=== PATIENT | male | born 1970 | race Caucasian/White ===

== ENCOUNTER → 2016-09-19 | Outpatient (CLI) | payer BC ==
--- NOTE | 2016-09-19 19:14 | EST ---
DATE OF SERVICE: 09/19/2016 AGE: 46Y SEX: M HT: 72" WT: 180 lbs. Protocol Steven: Other: Stage: Dur. of Exercise: 10:39 *Heart Rate Blood Pressure *Rest: 91 Rest: 138/91 * *Max. Achieved: 154 Maximum BP: 195/93 85% PMHR: 150 100% PMHR: 176 *METS: 10.5 INDICATIONS: Chest pain. MEDICATIONS: See list. Exercise treadmill stress test for Max Shelby 09/19/2016. Indication the study: Chest pain. Stress data: Pretesting physical examination showed the heart rate of 97, pressure is 138/91 millimeters Hg. Baseline EKG showed sinus mechanism. The patient exercised on the treadmill according to Steven protocol for a total of 10 minutes and 39 seconds and achieved 10.5 METs. Max heart rate was 146, which is about 88% of maximum predicted heart rate. Maximum blood pressure was 195/93 mmHg. Clinically he did not have any symptoms of chest pain and the EKG did not show any significant ST or T-waves abnormalities consistent with ischemia. CONCLUSION: 1. Good exercise capacity. 2. Normal EKG. 3. ( ) response to exercise.
--- NOTE | 2016-09-22 09:17 | EST ---
DATE OF SERVICE: 09/19/2016 AGE: 46Y SEX: M HT: 72 WT: 180 lbs. Protocol Steven: X Other: Stage: IV Dur. of Exercise: *Heart Rate Blood Pressure *Rest: Rest: * *Max. Achieved: Maximum BP: 85% PMHR: 100% PMHR: *METS: ADDENDUM: CONCLUSION: 1. Good exercise capacity. 2. Normal EKG in response to exercise. 3. Overall normal stress test for this patient.
== END | disposition home or self-care (01) ==
LOC: RADNMMAIN 10:57
PROVIDERS: ATTEND Family Medicine
DX: R07.9 Chest pain, unspecified (principal)
CPT/HCPCS: 93017

== ENCOUNTER 2019-09-05 06:27 | Emergency (ER) | payer BC ==
[2019-09-05 06:36] VITALS: BP 119/83; PULSE 86; RESP 18; TEMP 97.5
[2019-09-05] MEDS ORDERED: HYDROcodone/APAP 7.5-325MG 1 EACH TAB PO ONE (06:52)
--- NOTE | 2019-09-05 07:16 | XR ---
Chest x-ray with bilateral RIBS HISTORY: Cough, rib pain Frontal view of the chest and 4 views of the left ribs and 4 views of the right ribs submitted on a t otal of 9 images And correlation to prior left RIBS dated 11/11/2014, chest x-ray 11/11/2014 There are overlying cardiac leads which which are detailed. There is no evident pneumothorax or pleur al effusion. Bone mineralization is maintained. No evident airspace disease. No evident displaced rib fracture. IMPRESSION: No acute abnormality. Bone scan could be performed for increased sensitivity if occult fr acture is suspected clinically. Rib series will be repeated at no additional charge to the patient sh ould it be requested.
--- NOTE | 2019-09-05 07:22 | ED ---
URI HPI - General Chief Complaint: Upper Respiratory Infection Stated Complaint: Rib Pain Time Seen by Provider: 09/05/19 06:38 Source: patient Mode of arrival: ambulatory Limitations: no limitations - History of Present Illness Initial Comments: 48yo male presenting today for chief complaint of left-sided rib pain x 12 hours. Patient states he has had a cough for the past month as well as others in his home. Patient denies hemoptysis. He states that he goes through coughing spells involve month ago he had such a hard spell he felt as though he broke a right rib. Patient states this was not confirmed on chest x-ray nor did he seek evaluation. Patient states last night as he was coughing he felt sudden onset of left rib pain he states it is tender to palpate that area as well as if he takes a deep breath. Patient denies any history of DVT provider embolism or leg swelling. Patient denies any fever or flu like symptoms. Has been on oral steroids. Denies any other complaints. ON arrival patient appears well there is no signs of respiratory distress. - Related Data Home Medications Medication Instructions Recorded Confirmed Budesonide-Formot 160-4.5 Mcg 2 puff INHALATION RT-DAILY 09/05/19 09/05/19 [Symbicort 160-4.5 Mcg Inhaler] Citalopram Hydrobromide 20 mg PO DAILY 09/05/19 09/05/19 [Citalopram HBr] Propranolol LA [Inderal LA] 60 mg PO DAILY 09/05/19 09/05/19 amLODIPine [Norvasc] 10 mg PO DAILY 09/05/19 09/05/19 traZODone HCL 50 mg PO HS PRN 09/05/19 09/05/19 Previous Rx's Medication Instructions Recorded Albuterol Inhaler [Ventolin Hfa 1 - 2 puff INHALATION RT-Q6H PRN 7 09/05/19 Inhaler] Days #1 inhaler Allergies Allergy/AdvReac Type Severity Reaction Status Date / Time No Known Allergies Allergy Verified 09/05/19 07:49 Review of Systems ROS Statement: Those systems with pertinent positive or pertinent negative responses have been documented in the HPI. ROS Other: All systems not noted in ROS Statement are negative. Past Medical History Past Medical History: Hypertension History of Any Multi-Drug Resistant Organisms: None Reported Past Surgical History: Tonsillectomy Additional Past Surgical History / Comment(s): mandible surgery Smoking Status: Current every day smoker Past Alcohol Use History: Daily Past Drug Use History: None Reported General Exam - General Exam Comments Initial Comments: General: The patient is awake and alert, in no distress, and does not appear acutely ill. Eye: +3 mm pupils are equal, round and reactive to light, extra-ocular movements are intact. No nystagmus. There is normal conjunctiva bilaterally. No signs of icterus. No photophobia Ears, nose, mouth and throat: There are moist mucous membranes and no oral lesions. Oropharynx was not erythematous there is no tonsillar enlargement exudates or lesions. Uvula midline. Tympanic membranes are not erythematous or is no effusions bulging or retraction. No tenderness to palpation of the mastoid. No anterior cervical lymphadenopathy. No tripoding, no drooling. Neck: The neck is supple, there is no tenderness or JVD. Cardiovascular: There is a regular rate and rhythm. No murmur, rub or gallop is appreciated. Respiratory: Lungs are clear to auscultation, respirations are non-labored, breath sounds are equal. No wheezes, stridor, rales, or rhonchi. No retractions or abdominal breathing. Dry cough Gastrointestinal: Soft, non-distended, non-tender abdomen without masses or organomegaly noted. There is no rebound or guarding present. Bowel sounds are unremarkable. Musculoskeletal: tendern to palpation around the level of left rib #6 mid clavicular line. Normal ROM, no tenderness. Strength 5/5. Sensation intact. Radial pulses equal bilaterally 2+. Neurological: A&O x 3. CN II-XII intact grossly, There are no obvious motor or sensory deficits. Coordination appears grossly intact. Speech appears normal, no muffling. Skin: Skin is warm and dry and no rashes or lesions are noted. No extremity edema Psychiatric: Cooperative Limitations: no limitations Course Vital Signs 09/05/19 09/05/19 06:30 08:13 Temperature 97.5 F L 97.5 F L Pulse Rate 86 86 Respiratory 18 18 Rate Blood Pressure 119/83 119/83 O2 Sat by Pulse 97 97 Oximetry Medical Decision Making - Medical Decision Making 48yo male presents today for chief complaint of rib pain after cough. HX of previous rib fractures of injury states feels similar. Patient CXR no obvious displaced fractures, no pneumothorax nor pneumonia. Patient has no SOB, chest pain, the pain is reproducible to palpation. + sick contacts. At this time feel patient is stable for discharge with outpatient follow-up, albuterol inhaler. Patient given pain medications in the ER as well as started pack, appropriate use was discussed. Patient case discussed with Dr. Cannon who is agreeable to care plan and discharge. Disposition Clinical Impression: Rib pain on left side, Cough Disposition: HOME SELF-CARE Condition: Good Instructions (If sedation given, give patient instructions): Muscle Strain (ED), Upper Respiratory Infection (ED) Additional Instructions: Please use medication as discussed. Please follow-up with family doctor in the next 2 days. Please return to emergency room if the symptoms increase or worsen or for any other concerns. Prescriptions: Albuterol Inhaler [Ventolin Hfa Inhaler] 1 - 2 puff INHALATION RT-Q6H PRN 7 Days #1 inhaler PRN Reason: Wheezing Is patient prescribed a controlled substance at d/c from ED?: No Referrals: Disha Jackson MD [Primary Care Provider] - 1-2 days Time of Disposition: 07:50
[2019-09-05] MEDS ORDERED: ACET/COD 300 MG/30 MG STARTER PACK 6 TAB BTL PO STA (07:54)
== END 2019-09-05 08:13 | disposition home or self-care (01) ==
LOC: EC 06:27
DX: R07.81 Pleurodynia (principal); R05 Cough; I10 Essential (primary) hypertension; F17.200 Nicotine dependence, unspecified, uncomplicated; Z79.51 Long term (current) use of inhaled steroids; Z79.899 Other long term (current) drug therapy
CPT/HCPCS: 71111; 93005; 99283

== ENCOUNTER → 2019-09-19 | Outpatient (CLI) | payer BC ==
--- NOTE | 2019-09-19 14:42 | NM ---
EXAMINATION TYPE: NM bone/joint limited DATE OF EXAM: 09/19/2019 COMPARISON: X-ray 09/05/2019 HISTORY: Pain TECHNIQUE: After the intravenous administration of 25.2 mCi Tc 99m MDP. Images acquired 3 hours pos t injection. Multiple views of the rib cage are submitted. FINDINGS: Within the posterior lateral left rib cage at the approximate left sixth rib findings are suspicious for intense abnormal uptake and fracture. Within the lateral margin of the right rib cage at the approximate level of the right ninth and fifth ribs there is intense abnormal uptake. IMPRESSION: 1. Findings are highly suspicious for bilateral rib fractures.
== END | disposition home or self-care (01) ==
LOC: RADNMMAIN 10:37
PROVIDERS: ATTEND Family Medicine
DX: S22.39XA Fracture of one rib, unspecified side, initial encounter for closed fracture (principal)
CPT/HCPCS: 78300; A9503

== ENCOUNTER 2022-10-21 09:08 | Emergency (ER) | payer BC ==
[2022-10-21] MEDS ORDERED: SODIUM CHLORIDE 0.9% 1,000 ML IV STA (09:32)
[2022-10-21] MEDS ORDERED: KETOROLAC 15 MG/ML 1 ML VIAL IVP STA (09:32)
[2022-10-21 09:43] VITALS: RESP 18
--- NOTE | 2022-10-21 10:04 | ED ---
Abdominal Pain HPI - General Chief Complaint: Abdominal Pain Stated Complaint: Abd Pain,Sent by Urgent Care Time Seen by Provider: 10/21/22 09:26 Source: patient, RN notes reviewed Mode of arrival: ambulatory Limitations: no limitations - History of Present Illness Initial Comments: This is a 52-year-old male who presents to the emergency department for abdominal pain. States that he was diagnosed with alcoholic induced liver disease 2 years ago. Pain is largely right sided. Shortly after this, he was experiencing right upper quadrant pain, jaundice, and dark urine. He was diagnosed with acute cholecystitis and transferred to [place] from [facility] for management by gastroenterology. He was told that it was too dangerous to remove his gallbladder, and there has not been a plan for surgical intervention since. States that over the last 2 days, he has had an increase in abdominal pain. He feels like his abdomen is swollen. Denies any nausea or vomiting. His symptoms are not as severe as they were when he had the chol ecystitis, as he is not experiencing jaundice or dark urine. He does still report chronic daily alcohol use.additionally, he has a history of COPD and states that he has had increasing coughing, difficulty breathing, and coughing over the last few days. Also reports left-sided lymphadenopathy. He has been on antibiotics with no improvement in symptoms. Denies any fevers, chills, sore throat, chest pain, palpitations, nausea, vomiting, diarrhea, back pain, or headaches. MD Complaint: abdominal pain Location: RUQ - Related Data Home Medications Medication Instructions Recorded Confirmed Budesonide-Formot 160-4.5 Mcg 2 puff INHALATION RT-DAILY PRN 09/05/19 10/21/22 [Symbicort 160-4.5 Mcg Inhaler] Propranolol LA [Inderal LA] 60 mg PO DAILY 09/05/19 10/21/22 amLODIPine [Norvasc] 10 mg PO DAILY 09/05/19 10/21/22 traZODone HCL 50 mg PO HS 09/05/19 10/21/22 Albuterol Inhaler [Ventolin Hfa 1 - 2 puff INHALATION RT-QID PRN 10/21/22 10/21/22 Inhaler] Amoxicillin 500 mg PO BID 10/21/22 10/21/22 Previous Rx's Medication Instructions Recorded Ketorolac [Toradol] 10 mg PO Q6HR PRN #12 tab 10/21/22 Allergies Allergy/AdvReac Type Severity Reaction Status Date / Time No Known Allergies Allergy Verified 10/21/22 11:18 Review of Systems ROS Statement: Those systems with pertinent positive or pertinent negative responses have been documented in the HPI. ROS Other: All systems not noted in ROS Statement are negative. Past Medical History Past Medical History: Hypertension Additional Past Medical History / Comment(s): Hepatitis History of Any Multi-Drug Resistant Organisms: None Reported Past Surgical History: Tonsillectomy Additional Past Surgical History / Comment(s): mandible surgery Past Psychological History: No Psychological Hx Reported Smoking Status: Current every day smoker Past Alcohol Use History: Daily, Heavy Past Drug Use History: None Reported General Exam Limitations: no limitations General appearance: alert, in no apparent distress Head exam: Present: atraumatic, normocephalic, normal inspection Eye exam: Absent: scleral icterus Respiratory exam: Present: wheezes, decreased breath sounds, prolonged expiratory Cardiovascular Exam: Present: regular rate, normal rhythm, normal heart sounds. Absent: systolic murmur, diastolic murmur, rubs, gallop, clicks GI/Abdominal exam: Present: soft, tenderness (RUQ and RLQ), normal bowel sounds. Absent: distended Neurological exam: Present: alert, oriented X3, CN II-XII intact Psychiatric exam: Present: normal affect, normal mood Skin exam: Present: warm, dry, intact, normal color. Absent: rash Course Vital Signs 10/21/22 10/21/22 10/21/22 09:19 09:38 10:30 Temperature 98.1 F Pulse Rate 91 88 86 Respiratory 20 18 18 Rate Blood Pressure 147/77 133/90 O2 Sat by Pulse 96 96 94 L Oximetry 10/21/22 10/21/22 12:02 12:37 Temperature 97 F L Pulse Rate 80 76 Respiratory 18 18 Rate Blood Pressure 122/97 132/94 O2 Sat by Pulse 94 L 94 L Oximetry Medical Decision Making - Medical Decision Making This is a 52-year-old male who presents to the emergency department for abdominal pain. Was pt. sent in by a medical professional or institution? @ -No Did you speak to anyone other than the patient for history? @ -No Did you review nursing and triage notes? @ -Yes, and I agree, it is accurate with regards to the patient's symptoms. Were old charts reviewed? @ -No Differential Diagnosis? @ -Differential Abdominal Pain Men: Appendicitis, cholecystitis, diverticulosis, ischemic bowel, pancreatitis, hep atitis, UTI, gastroenteritis, AAA, incarcerated hernia, bowel obstruction, constipation, inflammatory bowel, hepatitis, peptic ulcer disease, splenic infarction, perforated viscus, testicular torsion, this is not meant to be an all-inclusive list X-ray interpreted by me (1pt min.)? @ -Chest x-ray obtained, my interpretation identifies no localized consolidatio ns or infiltrates. What testing was considered but not performed? (CT, X-rays, U/S, labs)? Why? @ -None What meds were considered but not given? Why? @ -None Did you discuss the management of the patient with other professionals? @ -No Did you reconcile home meds? @ -No Was smoking cessation discussed for >3mins.? @ -I discussed smoking cessation for greater than 3 minutes. The risk of smoking were discussed with the patient including but not limited to risks of cancer, stroke, coronary artery disease and COPD. Also discussed with patient were multiple methods of quitting smoking. Lastly we discussed the financial cost of smoking. Was critical care preformed (if so, how long)? @ -No Were there social determinants of health that impacted care today? How? (Homelessness, low income, unemployed, alcoholism, drug addiction, transportation, low edu. Level, literacy, decrease access to med. care, [facility], rehab)? @ -Alcoholism Was there de-escalation of care discussed even if they declined? (Discuss DNR or withdrawal of care, Hospice)? @ -No What co-morbidities impacted this encounter? (DM, HTN, Smoking, COPD, CAD, Cancer, CVA, Hep., AIDS, mental health diagnosis, sleep apnea, morbid obesity)? @ -HTN, liver disease, alcoholism Was patient admitted / discharged? @ -Discharged. Lab work obtained revealing notable elevation in LFTs, consistent with the patient's known history. Ultrasound of the abdomen, with particular attention paid to the liver and gallbladder was obtained. This revealed no acute findings to account for the patient's symptoms. He did have minor improvement in his pain with the Toradol. Chest x-ray revealed no acute findings with relation to the coughing and shortness of breath. He tested negative for Covid, influenza, and RSV. Prescription for 3 day course of Toradol provided to help with additional pain relief. He is advised to avoid other [id number] anti-inflammatories such as ibuprofen when taking this. Case management called Dr. Tripp's office to get the patient an initial appointment in order to become established for ongoing care. His insurance requires an official referral from his primary care provider. A follow-up appointment with his primary care provider was made for 10/24. He is instructed to get an official referral from his primary care provider at that time in order to become established with Dr. Tripp, gastroenterology, for ongoing management of the liver failure. He is otherwise advised to discontinue alcohol use due to the harmful effects that it is having of his liver and overall health. Undiagnosed new problem with uncertain prognosis? @ -None Drug Therapy requiring intensive monitoring for toxicity (Heparin, Nitro, Insulin, Cardizem)? @ -None Were any procedures done? @ -None Diagnosis/symptom? @ -Abdominal pain Acute, or Chronic, or Acute on Chronic? @ -Acute Uncomplicated (without systemic symptoms) or Complicated (systemic symptoms)? @ -Uncomplicated Side effects of treatment? @ -None Exacerbation, Progression, or Severe Exacerbation] @ -Not applicable Poses a threat to life or bodily function? @ -No Diagnosis/symptom? @ -Fatty infiltration of the liver, liver disease Acute, or Chronic, or Acute on Chronic? @ -Chronic Uncomplicated (without systemic symptoms) or Complicated (systemic symptoms)? @ -Uncomplicated Side effects of treatment? @ -None Exacerbation, Progression, or Severe Exacerbation] @ -Unclear, no prior values in our system for comparison Poses a threat to life or bodily function? @ -Yes Return precautions reviewed in depth, the patient is instructed to return to the emergency department with any new, worsening, or concerning symptoms. Patient verbalized understanding. This case was discussed in detail with the attending ED physician, Dr. Dawkins. Presentation, findings, and treatment plan discussed in detail as well. - Lab Data Result diagrams: 10/21/22 09:51 10/21/22 09:51 Lab Results 10/21/22 10/21/22 10/21/22 Range/Units 09:51 09:51 09:51 WBC 8.7 (3.8-10.6) k/uL RBC 4.83 (4.30-5.90) m/uL Hgb 15.8 (13.0-17.5) gm/dL Hct 44.8 (39.0-53.0) % MCV 92.8 (80.0-100.0) fL MCH 32.8 (25.0-35.0) pg MCHC 35.3 (31.0-37.0) g/dL RDW 12.4 (11.5-15.5) % Plt Count 205 (150-450) k/uL MPV 7.8 Neutrophils % 71 % Lymphocytes % 18 % Monocytes % 6 % Eosinophils % 3 % Basophils % 1 % Neutrophils # 6.1 (1.3-7.7) k/uL Lymphocytes # 1.6 (1.0-4.8) k/uL Monocytes # 0.5 (0-1.0) k/uL Eosinophils # 0.3 (0-0.7) k/uL Basophils # 0.1 (0-0.2) k/uL PT 10.1 (9.0-12.0) sec INR 0.9 (<1.2) APTT 24.5 (22.0-30.0) sec Sodium 136 L (137-145) mmol/L Potassium 4.1 (3.5-5.1) mmol/L Chloride 104 (98-107) mmol/L Carbon Dioxide 21 L (22-30) mmol/L Anion Gap 11 mmol/L BUN 12 (9-20) mg/dL Creatinine 0.62 L (0.66-1.25) mg/dL Est GFR (CKD-EPI)AfAm >90 (>60 ml/min/1.73 sqM) Est GFR (CKD-EPI)NonAf >90 (>60 ml/min/1.73 sqM) Glucose 96 (74-99) mg/dL Plasma Lactic Acid Bertrand (0.7-2.0) mmol/L Calcium 9.4 (8.4-10.2) mg/dL Total Bilirubin 2.5 H (0.2-1.3) mg/dL AST 190 H (17-59) U/L ALT 126 H (4-49) U/L Alkaline Phosphatase 111 (38-126) U/L Total Protein 7.9 (6.3-8.2) g/dL Albumin 4.9 (3.5-5.0) g/dL Amylase 67 (30-110) U/L Lipase 153 (23-300) U/L Urine Color Urine Appearance (Clear) Urine pH (5.0-8.0) Ur Specific [place] (1.001-1.035) Urine Protein (Negative) Urine Glucose (UA) (Negative) Urine Ketones (Negative) Urine Blood (Negative) Urine Nitrite (Negative) Urine Bilirubin (Negative) Urine Urobilinogen (<2.0) mg/dL Ur Leukocyte Esterase (Negative) Urine RBC (0-5) /hpf Urine WBC (0-5) /hpf Urine Mucus (None) /hpf Serum Alcohol <10 mg/dL Heterophile Antibody (Negative) Influenza Type A (PCR) (Not Detectd) Influenza Type B (PCR) (Not Detectd) RSV (PCR) (Not Detectd) SARS-CoV-2 (PCR) (Not Detectd) 10/21/22 10/21/22 10/21/22 Range/Units 09:51 09:51 10:01 WBC (3.8-10.6) k/uL RBC (4.30-5.90) m/uL Hgb (13.0-17.5) gm/dL Hct (39.0-53.0) % MCV (80.0-100.0) fL MCH (25.0-35.0) pg MCHC (31.0-37.0) g/dL RDW (11.5-15.5) % Plt Count (150-450) k/uL MPV Neutrophils % % Lymphocytes % % Monocytes % % Eosinophils % % Basophils % % Neutrophils # (1.3-7.7) k/uL Lymphocytes # (1.0-4.8) k/uL Monocytes # (0-1.0) k/uL Eosinophils # (0-0.7) k/uL Basophils # (0-0.2) k/uL PT (9.0-12.0) sec INR (<1.2) APTT (22.0-30.0) sec Sodium (137-145) mmol/L Potassium (3.5-5.1) mmol/L Chloride (98-107) mmol/L Carbon Dioxide (22-30) mmol/L Anion Gap mmol/L BUN (9-20) mg/dL Creatinine (0.66-1.25) mg/dL Est GFR (CKD-EPI)AfAm (>60 ml/min/1.73 sqM) Est GFR (CKD-EPI)NonAf (>60 ml/min/1.73 sqM) Glucose (74-99) mg/dL Plasma Lactic Acid Bertrand 0.9 (0.7-2.0) mmol/L Calcium (8.4-10.2) mg/dL Total Bilirubin (0.2-1.3) mg/dL AST (17-59) U/L ALT (4-49) U/L Alkaline Phosphatase (38-126) U/L Total Protein (6.3-8.2) g/dL Albumin (3.5-5.0) g/dL Amylase (30-110) U/L Lipase (23-300) U/L Urine Color Light Yellow Urine Appearance Clear (Clear) Urine pH 5.5 (5.0-8.0) Ur Specific [place] 1.008 (1.001-1.035) Urine Protein Negative (Negative) Urine Glucose (UA) Negative (Negative) Urine Ketones 1+ H (Negative) Urine Blood Trace H (Negative) Urine Nitrite Negative (Negative) Urine Bilirubin Negative (Negative) Urine Urobilinogen <2.0 (<2.0) mg/dL Ur Leukocyte Esterase Negative (Negative) Urine RBC <1 (0-5) /hpf Urine WBC <1 (0-5) /hpf Urine Mucus Rare H (None) /hpf Serum Alcohol mg/dL Heterophile Antibody Negative (Negative) Influenza Type A (PCR) (Not Detectd) Influenza Type B (PCR) (Not Detectd) RSV (PCR) (Not Detectd) SARS-CoV-2 (PCR) (Not Detectd) 10/21/22 Range/Units 10:01 WBC (3.8-10.6) k/uL RBC (4.30-5.90) m/uL Hgb (13.0-17.5) gm/dL Hct (39.0-53.0) % MCV (80.0-100.0) fL MCH (25.0-35.0) pg MCHC (31.0-37.0) g/dL RDW (11.5-15.5) % Plt Count (150-450) k/uL MPV Neutrophils % % Lymphocytes % % Monocytes % % Eosinophils % % Basophils % % Neutrophils # (1.3-7.7) k/uL Lymphocytes # (1.0-4.8) k/uL Monocytes # (0-1.0) k/uL Eosinophils # (0-0.7) k/uL Basophils # (0-0.2) k/uL PT (9.0-12.0) sec INR (<1.2) APTT (22.0-30.0) sec Sodium (137-145) mmol/L Potassium (3.5-5.1) mmol/L Chloride (98-107) mmol/L Carbon Dioxide (22-30) mmol/L Anion Gap mmol/L BUN (9-20) mg/dL Creatinine (0.66-1.25) mg/dL Est GFR (CKD-EPI)AfAm (>60 ml/min/1.73 sqM) Est GFR (CKD-EPI)NonAf (>60 ml/min/1.73 sqM) Glucose (74-99) mg/dL Plasma Lactic Acid Bertrand (0.7-2.0) mmol/L Calcium (8.4-10.2) mg/dL Total Bilirubin (0.2-1.3) mg/dL AST (17-59) U/L ALT (4-49) U/L Alkaline Phosphatase (38-126) U/L Total Protein (6.3-8.2) g/dL Albumin (3.5-5.0) g/dL Amylase (30-110) U/L Lipase (23-300) U/L Urine Color Urine Appearance (Clear) Urine pH (5.0-8.0) Ur Specific [place] (1.001-1.035) Urine Protein (Negative) Urine Glucose (UA) (Negative) Urine Ketones (Negative) Urine Blood (Negative) Urine Nitrite (Negative) Urine Bilirubin (Negative) Urine Urobilinogen (<2.0) mg/dL Ur Leukocyte Esterase (Negative) Urine RBC (0-5) /hpf Urine WBC (0-5) /hpf Urine Mucus (None) /hpf Serum Alcohol mg/dL Heterophile Antibody (Negative) Influenza Type A (PCR) Not Detected (Not Detectd) Influenza Type B (PCR) Not Detected (Not Detectd) RSV (PCR) Not Detected (Not Detectd) SARS-CoV-2 (PCR) Not Detected (Not Detectd) - Radiology Data Radiology results: report reviewed, image reviewed Disposition Clinical Impression: Abdominal pain, Fatty infiltration of liver Disposition: HOME SELF-CARE Instructions (If sedation given, give patient instructions): Cirrhosis (ED), Abdominal Pain (ED) Additional Instructions: Return to the emergency department with any new, worsening, or concerning symptoms. Take the Toradol up to every 6 hours as needed for pain relief. Follow up with your PCP on Monday as scheduled to get an official referral to Dr. Tripp, gastroenterology, for management of the liver disease. Prescriptions: Ketorolac [Toradol] 10 mg PO Q6HR PRN #12 tab PRN Reason: Pain Is patient prescribed a controlled substance at d/c from ED?: No Referrals: Disha Jackson MD [Primary Care Provider] - 10/24/22 11:15 am Denae Tripp MD [STAFF PHYSICIAN] - 1-2 days (Will need referral from Dr Jackson office to be sent to this office prior to appointment due to insurance. )
[2022-10-21 10:11] LABS: Basophils # (A) 0.1 k/uL (0-0.2); Basophils % (A) 1 %; Eosinophils # (A) 0.3 k/uL (0-0.7); Eosinophils % (A) 3 %; HCT 44.8 % (39.0-53.0); HGB 15.8 gm/dL (13.0-17.5); Lymphocytes # (A) 1.6 k/uL (1.0-4.8); Lymphocytes % (A) 18 %; MCH 32.8 pg (25.0-35.0); MCHC 35.3 g/dL (31.0-37.0); MCV 92.8 fL (80.0-100.0); Mean Platelet Volume 7.8; Monocytes # (A) 0.5 k/uL (0-1.0); Monocytes % (A) 6 %; Neutrophils # (A) 6.1 k/uL (1.3-7.7); Neutrophils % (A) 71 %; Platelet Count 205 k/uL (150-450); RBC 4.83 m/uL (4.30-5.90); RDW 12.4 % (11.5-15.5); WBC 8.7 k/uL (3.8-10.6)
[2022-10-21 10:14] LABS: Appearance,Urine Clear (Clear); Bilirubin,Urine Negative (Negative); Blood,Urine Trace (Negative); Color,Urine Light Yellow; Glucose,Urine (UA) Negative (Negative); Ketones,Urine 1+ (Negative); Leukocyte Esterase,Urine Negative (Negative); Mucus,Urine Rare /hpf; Nitrite,Urine Negative (Negative); PH, Urine 5.5 (5.0-8.0); Protein,Urine Negative (Negative); RBC,Urine <1 /hpf (0-5); Specific Gravity,Urine 1.008 (1.001-1.035); Urobilinogen,Urine <2.0 mg/dL (<2.0); WBC,Urine <1 /hpf (0-5)
[2022-10-21 10:27] LABS: INR 0.9 (<1.2); Partial Thromboplastin Time 24.5 sec (22.0-30.0); Prothrombin Time 10.1 sec (9.0-12.0)
--- NOTE | 2022-10-21 10:27 | XR ---
EXAMINATION TYPE: XR chest 2V DATE OF EXAM: 10/21/2022 COMPARISON: 09/05/2019 TECHNIQUE: PA and lateral views submitted. HISTORY: Shortness of breath FINDINGS: The lungs are clear and there is no pneumothorax, pleural effusion, or focal pneumonia. Heart size normal and no overt failure. Osseous structures intact. Hyperinflation. IMPRESSION: 1. No acute process. Correlate for COPD.
[2022-10-21 10:34] LABS: ALT 126 U/L (4-49); AST 190 U/L (17-59); African American GFR (CKD) >90 (>60 ml/min/1.73 sqM); Albumin 4.9 g/dL (3.5-5.0); Alcohol <10 mg/dL; Alkaline Phosphatase 111 U/L (38-126); Amylase 67 U/L (30-110); Anion Gap 11 mmol/L; Blood Urea Nitrogen 12 mg/dL (9-20); Calcium 9.4 mg/dL (8.4-10.2); Carbon Dioxide 21 mmol/L (22-30); Chloride 104 mmol/L (98-107); Glucose 96 mg/dL (74-99); Lipase 153 U/L (23-300); Non-African American GFR(CKD) >90 (>60 ml/min/1.73 sqM); Potassium 4.1 mmol/L (3.5-5.1); Sodium 136 mmol/L (137-145); Total Bilirubin 2.5 mg/dL (0.2-1.3); Total Protein 7.9 g/dL (6.3-8.2)
--- NOTE | 2022-10-21 11:38 | US ---
EXAMINATION TYPE: US abdomen limited DATE OF EXAM: 10/21/2022 COMPARISON: NONE CLINICAL HISTORY: Abdominal pain in liver failure. RUQ pain TECHNIQUE: Multiple sonographic images of the right upper quadrant are obtained. FINDINGS: EXAM MEASUREMENTS: Liver Length: 21.0 cm Gallbladder Wall: 0.3 cm CBD: 0.5 cm Right Kidney: 11.8 x 4.6 x 5.5 cm Pancreas: Obscured by bowel gas Liver: The liver is enlarged and diffusely increased in echogenicity compatible fatty liver infiltrat ion. There is no intra or extra hepatic biliary ductal dilation. Gallbladder: no evidence of stones Evidence for sonographic Bee's sign: no CBD: wnl Right Kidney: no evidence of hydronephrosis IMPRESSION: 1. No evidence of cholelithiasis or cholecystitis. 2. No evidence of biliary ductal dilation. 3. Hepatomegaly with diffuse hepatic steatosis. 4. No evidence of right-sided hydronephrosis.
[2022-10-21] MEDS ORDERED: MORPHINE SULFATE 2 MG/ML SYRINGE IVP STA (12:06)
[2022-10-21] MEDS ORDERED: traMADol 50 MG STARTER PACK 3 TAB BTL PO STA (12:21)
[2022-10-21 12:39] VITALS: BP 132/94; PULSE 76; TEMP 97
== END 2022-10-21 12:39 | disposition home or self-care (01) ==
LOC: EC 09:08
DX: K76.0 Fatty (change of) liver, not elsewhere classified (principal); I10 Essential (primary) hypertension; J44.9 Chronic obstructive pulmonary disease, unspecified; F17.200 Nicotine dependence, unspecified, uncomplicated; Z20.822 Contact with and (suspected) exposure to COVID-19; Z79.51 Long term (current) use of inhaled steroids; Z79.899 Other long term (current) drug therapy
CPT/HCPCS: 36415; 80053; 82150; 83605; 83690; 85025; 85610; 85730; 86308; 81001; 80320; 87636; 71046; 76705; 99285; 96374; 96361; J1885

== ENCOUNTER → 2022-12-21 | Outpatient (CLI) | payer BC ==
--- NOTE | 2022-12-23 11:48 | MR ---
EXAMINATION TYPE: MR liver wo/w con DATE OF EXAM: 12/21/2022 3:38 PM INDICATION: Patient age:Male; 52 years old; Reason for study: R74.01 ELEVATION OF LEVELS OF LIVER TRANSAMINASE L; . Elevated liver enzymes level COMPARISON: abdomen 10/21/2022 ultrasound. TECHNIQUE: Multiplanar multi-sequence imaging was performed without contrast. Post contrast imaging was performed. Post IV contrast subtraction images were also submitted for review. IV Contrast: 7 cc Gadavist FINDINGS: LOWER CHEST: No gross irregularity. ABDOMEN Liver: The liver is enlarged for size measuring up to 18.3 cm in caudocranial dimension at the midcla vicular line. There is signal dropout on chemical shift out of phase imaging. A high T2 signal segmen t 7 observation with arterial phase enhancement measuring 5 mm which persists on delayed imaging. Gallbladder and Bile ducts: The gallbladder is within normal limits. No ductal dilation. Pancreas: No ductal dilation or evidence for mass. Spleen: Unremarkable. Adrenal glands: Unremarkable. Kidneys: Unremarkable. Stomach and Bowel: Unremarkable as visualized. Peritoneum: No evidence of pneumoperitoneum or free fluid. Vasculature: Unremarkable. No aortic aneurysm. Musculoskeletal: The osseous structures appear intact. Lymph Nodes: No gross evidence for lymphadenopathy. Abdominal wall: Fat-containing umbilical. IMPRESSION: 1. No observation that meet HCC criteria. 2. Hepatomegaly with hepatic steatosis. 3. Suspected flash filling segment 7, 5 mm hemangioma.
== END | disposition home or self-care (01) ==
LOC: RADMRIMAIN 14:13
PROVIDERS: ATTEND Nurse Practitioner Family
DX: K76.0 Fatty (change of) liver, not elsewhere classified (principal); R16.0 Hepatomegaly, not elsewhere classified; R74.01 Elevation of levels of liver transaminase levels
CPT/HCPCS: 74183; A9585

== ENCOUNTER 2023-03-28 08:52 | Emergency (ER) | payer BC ==
--- NOTE | 2023-03-28 09:10 | ED ---
Chest Pain HPI - General Chief Complaint: Chest Pain Stated Complaint: chest pain, abd pain Time Seen by Provider: 03/28/23 08:53 Source: patient, EMS, RN notes reviewed Mode of arrival: EMS Limitations: no limitations - History of Present Illness Initial Comments: This is a 52-year-old male who presents to the emergency department for chest pain and abdominal pain. 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 This prompted him to call EMS. He was given Zofran and a nitroglycerin tablet, which essentially resolved his symptoms. Denies any history of chest pain like this in the past. He does have problems with intermittent abdominal pain due to his liver disease, but denies any known cardiac issues. As a separate issue, he does note that he had a mole removed from his right forearm 2 days ago, and has noticed increasing drainage and redness, and is concerned about an infection. Denies any fevers, chills, sore throat, cough, dyspnea, diarrhea, back pain, or headaches. MD Complaint: chest pain - Related Data Home Medications Medication Instructions Recorded Confirmed Propranolol LA [Inderal LA] 60 mg PO DAILY 09/05/19 03/28/23 amLODIPine [Norvasc] 10 mg PO DAILY 09/05/19 03/28/23 Albuterol Inhaler [Ventolin Hfa 1 - 2 puff INHALATION RT-QID PRN 10/21/22 03/28/23 Inhaler] Previous Rx's Medication Instructions Recorded Cephalexin [Keflex] 500 mg PO Q6HR 5 Days #20 cap 03/28/23 Allergies Allergy/AdvReac Type Severity Reaction Status Date / Time No Known Allergies Allergy Verified 03/28/23 11:26 Review of Systems ROS Statement: Those systems with pertinent positive or pertinent negative responses have been documented in the HPI. ROS Other: All systems not noted in ROS Statement are negative. Past Medical History Past Medical History: Hypertension Additional Past Medical History / Comment(s): Hepatitis History of Any Multi-Drug Resistant Organisms: None Reported Past Surgical History: Tonsillectomy Additional Past Surgical History / Comment(s): mandible surgery Past Psychological History: No Psychological Hx Reported Smoking Status: Current every day smoker Past Alcohol Use History: Daily, Heavy Past Drug Use History: None Reported General Exam Limitations: no limitations General appearance: alert, in no apparent distress Head exam: Present: atraumatic, normocephalic, normal inspection Respiratory exam: Present: normal lung sounds bilaterally. Absent: respiratory distress, wheezes, rales, rhonchi, stridor Cardiovascular Exam: Present: regular rate, normal rhythm, normal heart sounds. Absent: systolic murmur, diastolic murmur, rubs, gallop, clicks GI/Abdominal exam: Present: soft, normal bowel sounds. Absent: distended, tenderness, guarding, rebound, rigid Neurological exam: Present: alert, oriented X3, CN II-XII intact Psychiatric exam: Present: normal affect, normal mood Skin exam: Present: warm, dry, intact, normal color. Absent: rash Course Vital Signs 03/28/23 03/28/23 03/28/23 08:59 09:00 10:00 Temperature 98.2 F Pulse Rate 92 92 89 Respiratory 20 18 18 Rate Blood Pressure 149/104 149/104 157/90 O2 Sat by Pulse 95 96 95 Oximetry 03/28/23 03/28/23 03/28/23 11:00 12:00 13:00 Temperature 98.4 F Pulse Rate 82 79 80 Respiratory 18 18 18 Rate Blood Pressure 123/95 143/93 142/95 O2 Sat by Pulse 95 96 95 Oximetry Chest Pain MDM - MDM This is a 52-year-old male who presents to the emergency department for chest pain. Was pt. sent in by a medical professional or institution? @ -No Did you speak to anyone other than the patient for history? @ -No Did you review nursing and triage notes? @ -Yes, and I agree, it is accurate with regards to the patient's symptoms. Were old charts reviewed? @ -No Differential Diagnosis? @ -Differential Chest Pain: Stable Angina, Unstable Angina, STEMI, NSTEMI Aortic Dissection, Pneumothorax, Musculoskeletal, Esophageal Spasm GERD, Cholecystitis, Pancreatitis, Zoster, this is not meant to be an all-inclusive list. EKG interpreted by me (3pts min.)? @ -EKG interpreted by me demonstrating the following: Sinus rhythm. Ventricular rate 83 beats per minute, AR interval 128 ms, QRS duration 95 ms, QTC 405 ms. X-rays interpreted by me (1pt min.)? @ -Chest x-ray obtained, my interpretation identifies no localized consolidations or infiltrates. CT interpreted by me (1pt min.)? @ -Not obtained U/S interpreted by me (1pt. min.)? @ -Not obtained What testing was considered but not performed? (CT, X-rays, U/S, labs)? Why? @ -None What meds were considered but not given? Why? @ -None Did you discuss the management of the patient with other professionals? @ -No Did you reconcile home meds? @ -No Was smoking cessation discussed for >3mins.? @ -I discussed smoking cessation for greater than 3 minutes. The risk of smoking were discussed with the patient including but not limited to risks of cancer, stroke, coronary artery disease and COPD. Also discussed with patient were multiple methods of quitting smoking. Lastly we discussed the financial cost of smoking. Was critical care preformed (if so, how long)? @ -No Were there social determinants of health that impacted care today? How? (Homelessness, low income, unemployed, alcoholism, drug addiction, transportati on, low edu. Level, literacy, decrease access to med. care, long-term, rehab)? @ -No Was there de-escalation of care discussed even if they declined? (Discuss DNR or withdrawal of care, Hospice)? @ -No What co-morbidities impacted this encounter? (DM, HTN, Smoking, COPD, CAD, Cancer, CVA, Hep., AIDS, mental health diagnosis, sleep apnea, morbid obesity)? @ -Smoking, liver disease Was patient admitted / discharged? @ -Discharged. Lab work obtained and found to be nonactionable. Patient remained asymptomatic in terms of the chest pain and nausea while in the emergency department. He was given a dose of Toradol for the abdominal pain while in the emergency department. It is not entirely clear if the chest pain was resolved by the nitro, as it took over 20 minutes for him to start to notice improvement, and it may have just started to improve on its own. We did obtain a second troponin after 3 hours, and this was also found to be negative. Will start the patient on a course of Keflex for possible cellulitis to the right arm following Nevus removal, as there is some surrounding erythema and drainage. 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 Undiagnosed new problem with uncertain prognosis? @ -None Drug Therapy requiring intensive monitoring for toxicity (Heparin, Nitro, Insulin, Cardizem)? @ -None Were any procedures done? @ -None Diagnosis/symptom? @ -Chest pain, nausea, cellulitis Acute, or Chronic, or Acute on Chronic? @ -Acute Uncomplicated (without systemic symptoms) or Complicated (systemic symptoms)? @ -Uncomplicated Side effects of treatment? @ -None Exacerbation, Progression, or Severe Exacerbation] @ -Not applicable Poses a threat to life or bodily function? @ -No Return precautions reviewed in depth, the patient is instructed to return to the emergency department with any new, worsening, or concerning symptoms. Patient verbalized understanding. This case was discussed in detail with the attending ED physician, Dr. Florentino. Presentation, findings, and treatment plan discussed in detail as well. Disposition Clinical Impression: Chest pain, Cellulitis, Nausea, Nicotine dependence Disposition: HOME SELF-CARE Instructions (If sedation given, give patient instructions): Chest Pain (ED) Additional Instructions: Return to the emergency department with any new, worsening, or concerning symptoms. Take the antibiotic as prescribed for 5 days. Follow up with your primary care provider in 1-2 days. Prescriptions: Cephalexin [Keflex] 500 mg PO Q6HR 5 Days #20 cap Is patient prescribed a controlled substance at d/c from ED?: No Referrals: Disha Jackson MD [Primary Care Provider] - 1-2 days
[2023-03-28 09:32] LABS: Basophils # (A) 0.1 k/uL (0-0.2); Basophils % (A) 1 %; Eosinophils # (A) 0.2 k/uL (0-0.7); Eosinophils % (A) 2 %; HCT 42.3 % (39.0-53.0); HGB 14.8 gm/dL (13.0-17.5); Lymphocytes # (A) 1.6 k/uL (1.0-4.8); Lymphocytes % (A) 20 %; MCH 32.7 pg (25.0-35.0); MCHC 34.9 g/dL (31.0-37.0); MCV 93.7 fL (80.0-100.0); Mean Platelet Volume 8.2; Monocytes # (A) 0.5 k/uL (0-1.0); Monocytes % (A) 6 %; Neutrophils # (A) 5.7 k/uL (1.3-7.7); Neutrophils % (A) 70 %; Platelet Count 222 k/uL (150-450); RBC 4.52 m/uL (4.30-5.90); RDW 12.5 % (11.5-15.5); WBC 8.1 k/uL (3.8-10.6)
[2023-03-28 09:39] LABS: ALT 38 U/L (4-49); AST 52 U/L (17-59); African American GFR (CKD) >90 (>60 ml/min/1.73 sqM); Albumin 4.7 g/dL (3.5-5.0); Alkaline Phosphatase 88 U/L (38-126); Amylase 55 U/L (30-110); Anion Gap 9 mmol/L; Blood Urea Nitrogen 11 mg/dL (9-20); Calcium 9.5 mg/dL (8.4-10.2); Carbon Dioxide 25 mmol/L (22-30); Chloride 101 mmol/L (98-107); Glucose 132 mg/dL (74-99); Lipase 104 U/L (23-300); Magnesium 1.8 mg/dL (1.6-2.3); Non-African American GFR(CKD) >90 (>60 ml/min/1.73 sqM); Potassium 4.2 mmol/L (3.5-5.1); Sodium 135 mmol/L (137-145); Total Bilirubin 1.5 mg/dL (0.2-1.3); Total Protein 7.5 g/dL (6.3-8.2)
--- NOTE | 2023-03-28 09:57 | XR ---
EXAMINATION TYPE: XR chest 2V DATE OF EXAM: 03/28/2023 COMPARISON: 10/21/2022 TECHNIQUE: PA and lateral views submitted. HISTORY: Chest pain FINDINGS: The lungs are clear and there is no pneumothorax, pleural effusion, or focal pneumonia. Heart size normal and no overt failure. Osseous structures intact. Chronic rib deformity noted. Prominent upper mediastinum likely related to ectatic vasculature. Hyperinflation suggests COPD. IMPRESSION: 1. No acute process. Correlate for COPD
[2023-03-28] MEDS ORDERED: KETOROLAC 15 MG/ML 1 ML VIAL IVP STA (10:15)
[2023-03-28 10:23] LABS: Partial Thromboplastin Time 24.2 sec (22.0-30.0); Prothrombin Time 10.8 sec (9.0-12.0)
[2023-03-28] MEDS ORDERED: ONDANSETRON 4 MG ODT STARTER PACK 2 TAB BTL PO STA (13:00)
[2023-03-28 13:05] VITALS: BP 142/95; PULSE 80; RESP 18; TEMP 98.4
== END 2023-03-28 13:21 | disposition home or self-care (01) ==
LOC: EC 08:52
DX: R07.9 Chest pain, unspecified (principal); L03.113 Cellulitis of right upper limb; R11.0 Nausea; F17.200 Nicotine dependence, unspecified, uncomplicated; I10 Essential (primary) hypertension; Z79.899 Other long term (current) drug therapy
CPT/HCPCS: 36415; 93005; 80053; 82150; 83690; 83735; 84484; 85025; 85610; 85730; 71046; 99285; 96374; 99406; J1885; S0119

== ENCOUNTER → 2025-02-18 | Outpatient (CLI) | payer BC ==
--- NOTE | 2025-02-18 07:32 | US ---
EXAMINATION TYPE: US liver DATE OF EXAM: 02/18/2025 COMPARISON: us(09/19/2024), MR liver 12/21/2022 CLINICAL INDICATION: Male, 54 years old with history of K70.0 ALCOHOLIC FATTY LIVER; TECHNIQUE: Grayscale and color Doppler imaging of the right upper quadrant. FINDINGS: EXAM MEASUREMENTS: Liver Length: 17.7 cm Gallbladder Wall: 0.2 cm CBD: 0.3 cm, color Doppler imaging was utilized to isolate the common bile duct for measurement. Right Kidney: 11.7x5.7x6.4 cm YARN EXAMINER NOTES: Pancreas: Tail obscured by overlying bowel gas Liver: Increased attenuation Gallbladder: No stones seen Evidence for sonographic Bee's sign: No CBD: wnl Right Kidney: No hydronephrosis or masses seen The visualized pancreas is unremarkable. Noncirrhotic morphology liver with diffusely slightly increa sed echogenicity. No focal lesion identified. Gallbladder demonstrates no stones, wall thickening or surrounding fluid. Negative sonographic Bee's sign. Common bile duct is within normal limits. Righ t kidney demonstrates no hydronephrosis, shadowing calculus or solid mass. IMPRESSION: 1. No ultrasound evidence for acute process. 2. Mild hepatic steatosis. [facility], , 02/18/2025 7:30 AM
== END | disposition home or self-care (01) ==
LOC: RADUSWWP 06:52
PROVIDERS: ATTEND Internal Medicine Gastroenterology
DX: K70.0 Alcoholic fatty liver (principal)
CPT/HCPCS: 76705